=== PATIENT | male | born 1980 | race Caucasian/White ===

== ENCOUNTER 2017-03-15 20:06 | Emergency (ER) | payer OTHER ==
[~2017-03-15] VITALS: Ht 193 cm; Wt 160.0 kg
[2017-03-16 01:24] VITALS: BP 170/94
== END 2017-03-16 01:25 | disposition home or self-care (01) ==
LOC: EME 20:06
DX: S00.03XA Contusion of scalp, initial encounter (principal); R42 Dizziness and giddiness; V67.5XXA Driver of heavy transport vehicle injured in collision with fixed or stationary object in traffic accident, initial encounter; Y92.411 Interstate highway as the place of occurrence of the external cause
CPT/HCPCS: 70450; 99281; 99284